=== PATIENT | male | born 1960 | race Caucasian/White ===

== ENCOUNTER → 2024-10-07 07:46 | Outpatient (BNVA) | payer MEDICARE, SELFPAY | PROVIDERS: Referring Provider Internal Medicine Hematology & Oncology; Visit Provider Psychiatry & Neurology Neurology | DX: G62.9 Polyneuropathy, unspecified (principal); M06.9 Rheumatoid arthritis, unspecified; C90.00 Multiple myeloma not having achieved remission | CPT/HCPCS: 99203 ==

== ENCOUNTER → 2024-12-02 08:46 | Outpatient (BNVA) | payer MEDICARE, SELFPAY | PROVIDERS: PCP Family Medicine; Referring Provider Psychiatry & Neurology Neurology; Visit Provider Psychiatry & Neurology Neurology | DX: M79.2 Neuralgia and neuritis, unspecified (principal) | CPT/HCPCS: 95913 ==